=== PATIENT | female | born 1975 | race Caucasian/White ===

== ENCOUNTER → 2018-04-13 | Outpatient (CLI) | payer MEDICARE, OTHER ==
--- NOTE | 2018-04-14 05:17 | MR ---
EXAMINATION TYPE: MR pelvis wo/w con DATE OF EXAM: 04/13/2018 COMPARISON: HISTORY: Pelvic pain, abnormal CT/US CONTRAST: Standard multiplanar, multisequence MRI departmental protocol utilizing 5.5 mL intravenous Gadavist g adolinium contrast. FINDINGS: Uterus is anteverted. There is a large mass on the posterior uterine fundus that measures 7 x 5 cm. There is anterior displacement of the endometrium. There are a few cervical cysts that measu re up to 1 cm. Endometrium is not thickened. There is heterogeneous enhancement of the mass with cont rast. There is no free fluid in the pelvis. Bladder distends smoothly. There is 11 mm cyst on the right ova ry. There is 3.7 x 1.5 cm tubular shaped cystic fluid collection in the left adnexal region. This cou ld be ovarian cyst or hydrosalpinx. IMPRESSION: Large mass on the posterior uterine myometrium consistent with fibroid. Multiple small cervical cysts . No endometrial thickening. Right ovarian cyst. Left ovary cyst or hydrosalpinx.
== END | disposition home or self-care (01) ==
LOC: RADMRIMAIN 16:57
PROVIDERS: ATTEND Physician Assistant
DX: N88.8 Other specified noninflammatory disorders of cervix uteri (principal); N83.201 Unspecified ovarian cyst, right side
CPT/HCPCS: 72197; A9581

== ENCOUNTER → 2020-02-22 | Outpatient (CLI) | payer MEDICARE, OTHER ==
[2020-02-22 08:30] VITALS: BP 99/63; PULSE 99; RESP 14; TEMP 97.7
--- NOTE | 2020-02-22 09:14 | P.GSHP ---
History of Present Illness H&P Date: 02/22/20 Chief Complaint: Abnormal mammogram and ultrasound right breast Abida is a 44-year-old white female seen in consultation for Lian Balderas regarding mammographic and ultrasound abnormality of the right breast. The patient had a screening mammogram performed which revealed findings of concern leading to diagnostic mammograms of each breast and a focused ultrasound of the right breast. These were done on 02-13-20. She had additional views then performed to include diagnostic bilateral mammograms and ultrasound of the right breast. The right breast revealed calcifications localized to the anterior upper outer quadrant suspicious for malignancy. A 2.7 cm spiculated mass was noted at the 6:00 area of the right breast, also suspicious for malignancy. The possible mass in the central right breast seen in the initial mammogram was not seen. The left breast calcifications were scattered and considered non- suspicious. Targeted ultrasound was performed in the 6:00 region of the right breast and a 3.7 cm irregular hypoechoic shadowing mass was noted. This correlated with the palpable abnormality as well as the 2.7 cm spiculated mass noted on mammogram. Scanning the right axilla revealed a 1.1 cm fatty replaced lymph node and a 1.1 cm eccentric cortical thickening lymph node also suspicious for metastatic disease. The final impression after these studies was 1. 2.7 cm irregular hypoechoic shadowing solid mass in the 6:00 subareolar region of the right breast highly suggestive of malignancy/ultrasound core biopsy recommended 2. calcifications in the anterior upper outer quadrant of the right breast suspicious for malignancy 3. 1.1 cm axillary node with eccentric cortical thickening suspicious for metastatic disease 4. No mammographic evidence of malignancy in the left breast Abida states she noted a pulling in her right breast, and burning as well as deformity of the breast over the past several months. Sensation seems to be spreading in the inferior aspect of the right breast to under her right axilla. She did not pursue this secondary to the pandemic. She states no lumps in the left breast. She does not complain of any nipple discharge, trauma or infection in the breast. Family History: mother: of kidney and lung cancer; at 52 maternal grandmother: leukemia paternal grandmother: colon cancer maternal aunt: breast cancer Hormonal History: menarche: 16 , first born at 23, breast fed: yes periods: partial hysterectomy 2019 for a fibroid; did not take ovaries BCP: Depo shot used for 4 years and than a tubal hormones: none Social history: 1. Hysterectomy for fibroid tumors 2. gallbladder 3. two C-sections Medical History: 1. COPD/emphysema 2. Sleep apnea Social History: smoke: 6 cigarettes per day/ 25 years alcohol: none drugs: Marijuana for anxiety/twice a week - Constitutional Constitutional: Reports sweats - EENT Comment: glaucoma Eyes: denies blurred vision, denies pain Ears: deny: decreased hearing, tinnitus Ears, nose, mouth and throat: Reports headache - Breasts Breasts: bilateral: as per HPI - Cardiovascular Cardiovascular: Reports chest pain, Reports shortness of breath - Respiratory Comment: COPD/emphysema - Gastrointestinal Gastrointestinal: Denies abdominal pain, Denies diarrhea, Denies nausea, Denies vomiting - Genitourinary (Female) Genitourinary: Denies dysuria, Denies hematuria - Menstruation Menstruation: Reports post hysterectomy - Musculoskeletal Comment: legs ache - Integumentary Integumentary: Denies pruritus, Denies rash - Neurological Neurological: Denies numbness, Denies weakness - Psychiatric Psychiatric: Reports anxiety - Endocrine Endocrine: Reports weight change, Denies fatigue - Hematologic/Lymphatic Comment: none - Allergic/Immunologic Allergic/Immunologic: Reports as per HPI Past Medical History Past Psychological History: Anxiety Medications and Allergies Home Medications Medication Instructions Recorded Confirmed Type Albuterol Inhaler [Ventolin Hfa 2 puff INHALATION RT-QID 02/22/20 02/22/20 History Inhaler] Albuterol Sulfate [Albuterol 2 mg PO DAILY PRN 02/22/20 02/22/20 History Sulfate Oral Syrup] Budesonide/Formoterol Fumarate 2 puff INHALATION DAILY 02/22/20 02/22/20 History [Symbicort 160-4.5 Mcg Inhaler] Cetirizine HCl 10 mg PO DAILY 02/22/20 02/22/20 History Cyclobenzaprine [Flexeril] 5 mg PO HS 02/22/20 02/22/20 History Fluticasone Propionate [Flovent 50 mcg INHALATION DAILY PRN 02/22/20 02/22/20 History Diskus] Naproxen 500 mg PO BID 02/22/20 02/22/20 History clonazePAM [KlonoPIN] 1 mg PO DAILY PRN 02/22/20 02/22/20 History Allergies Allergy/AdvReac Type Severity Reaction Status Date / Time tree and shrub pollen Allergy Swelling Unverified 02/22/20 08:12 Surgical - Exam BMI 17.5 - General moderate distress, cachectic - Eyes normal ocular movement - ENT no hearing loss, no congestion - Neck trachea midline, no venous distension - Respiratory normal expansion, normal respiratory effort, clear to auscultation - Cardiovascular Rhythm: regular Heart Sounds: normal: S1, S2 - Abdomen Abdomen: soft, non tender, no guarding, no rigid, no rebound - Integumentary dimpling of the inferior aspect of the right breast - Neurologic no disoriented, no combative - Musculoskeletal normal gait, normal posture - Psychiatric oriented to time, oriented to person, oriented to place, speech is normal, memory intact Breast examination: Bra: 34A inspection: dimpling of the right breast at 6 O Clock, milky nipple discharge on the right, no nipple inversion bilaterl, ptosis grade 2 Palpation: Right breast: Multi-positional exam reveals a area of fullness/nodularity at the 6 o'clock position this is ? if it is fixed to the chest wall was approximately 3 x 4 cm in size the breast itself was very dense throughout Right axilla: Positive shotty adenopathy Left breast: Dense tissue in the discrete mass Left axilla: No adenopathy of concern Results Mammogram and ultrasound reviewed with Dr. Rodrigues Assessment and Plan Assessment: Impression: 1. Mass right breast 6 o'clock position 2. Shotty right axillary adenopathy 3. Radiographic abnormality right breast/microcalcifications upper outer quadrant as well as ultrasound mass at 6:00 4. Anxiety 5. COPD/emphysema Plan: 1. Radiographs have been reviewed with Dr. Rodrigues the area of concern in the right breast is BIRADS 5, the microcalcifications in the upper-outer quadrant are not well seen on the films we have 2. Axillary adenopathy of concern 3. We have discussed her biopsy of the palpable area in the breast to be followed by biopsy of the axillary node by radiology is possible the patient would like to have the biopsy of the breast lesion done today 4. The area of microcalcifications in the right breast are not well seen on the outside films, there is probably patient will be recommended neoadjuvant chemotherapy and had the image the breast after the chemotherapy and consider at that time biopsy of the microcalcifications, however on today's visit the patient states that she would most likely have the breast removed in which case biopsy may not be necessary The patient's breasts are very small the area of calcifications in the right breast are not well seen and it was not at all certain that these could be done via stereotactic approach CC: Sussy encounter 55 minutes; > 50% of time in planning and counselling
--- NOTE | 2020-02-22 09:47 | P.PCN ---
Date of Procedure: 02/22/20 Preoperative Diagnosis: Mass right breast 6 o'clock position Postoperative Diagnosis: Same Procedure(s) Performed: Core biopsy right breast 6 o'clock position Anesthesia: local Surgeon: Berta Frias Pathology: other (Tissue from right breast biopsy) Condition: stable Disposition: same day Operative Findings: Mass right breast, I have discussed the case with radiology/Dr. Rodrigues he concurs that if we can do a core biopsy today of the breast lesion that that would be a good choice otherwise it would be March 06 before she can get a biopsy of this lesion done, she'll have biopsy of the axillary node done in interventional radiology in the near future Description of Procedure: Risks and benefits of the procedure were discussed with the patient. Risks include but are not limited to bleeding, infection, reaction to the anesthetic. Additionally the possibility of a nondiagnostic sample was discussed which would necessitate an additional biopsy. The area of concern in the right breast was prepped using Betadine. 1% lidocaine was used to anesthetize the area of concern. An 18-gauge core biopsy needle spring Asst. was inserted into the area of concern. 3 samples were obtained. Specimen was prepped and sent to pathology. Patient tolerated the procedure in stable condition.
== END | disposition home or self-care (01) ==
LOC: WWCWWP 08:03
PROVIDERS: ATTEND Surgery
DX: N63.15 Unspecified lump in the right breast, overlapping quadrants (principal)
CPT/HCPCS: 88305; 88341; 88342

== ENCOUNTER 2020-02-28 08:50 | Day surgery (SDC) | payer MEDICARE, OTHER ==
[2020-02-28 09:43] VITALS: BP 96/55; PULSE 58; RESP 16; TEMP 98.3
--- NOTE | 2020-02-28 10:45 | US ---
ULTRASOUND GUIDED CORE BIOPSY RIGHT AXILLA LYMPH NODE: CLINICAL HISTORY: Right axilla lymph node FINDINGS: The procedure was explained to the patient. The risks, complications, benefits and alternatives were discussed and any questions were answered. Informed consent was obtained. Patient was placed supin e on the ultrasound table and prepped and draped in the usual sterile fashion. Utilizing a 25 gauge needle, five passes were made into the requested right axilla lymph node. Patient was stable throughout the procedure. Pathology is pending. All elements of maximal barrier technique were utilized. IMPRESSION: 1. Successful ultrasound guided core biopsy of the right axillary requested lymph node.
== END 2020-02-28 10:20 | disposition home or self-care (01) ==
LOC: RADPROMAIN 08:50
PROVIDERS: ATTEND Surgery
DX: C77.3 Secondary and unspecified malignant neoplasm of axilla and upper limb lymph nodes (principal); C50.911 Malignant neoplasm of unspecified site of right female breast
CPT/HCPCS: 38505; 76942; 88305

== ENCOUNTER → 2020-03-14 | Outpatient (CLI) | payer MEDICARE, OTHER ==
[2020-03-14 15:34] VITALS: BP 108/66; PULSE 81; RESP 14; TEMP 98.5
--- NOTE | 2020-03-14 15:51 | P.PN ---
Subjective Progress Note Date: 03/14/20 Principal diagnosis: Stage IIA right breast cancer Abida is a 44-year-old white female status post core biopsy of the lesion in the right breast as well as ultrasound core biopsy of right axillary lymph node. Both revealed invasive ductal carcinoma. It appears that she is a stage IIA. She tolerated the procedure well. I've had a discussion with Abida and her friend regarding treatment options. I would recommend she be seen by medical oncology and had genetic testing done. Additionally she will discuss neoadjuvant chemotherapy with medical oncology. Objective - Vital Signs Vital signs: Vital Signs Temp 98.5 F 03/14/20 15:30 Pulse 81 03/14/20 15:30 Resp 14 03/14/20 15:30 BP 108/66 03/14/20 15:30 Pulse Ox 95 03/14/20 15:30 Intake & Output 03/13/20 03/14/20 03/14/20 18:59 06:59 18:59 Weight 49.895 kg - Exam BMI 17.2 - Constitutional General appearance: Present: thin - EENT Eyes: Present: EOMI ENT: Present: hearing grossly normal - Neck Neck: Present: normal ROM - Respiratory Respiratory: bilateral: CTA - Cardiovascular Rhythm: regular Heart sounds: normal: S1, S2 - Integumentary Integumentary Comment(s): Biopsy sites right breast and axilla clean and dry no evidence of infection - Psychiatric Psychiatric: Present: A&O x's 3, appropriate affect, intact judgment & insight Assessment and Plan Assessment: Impression: 1. Right breast stage IIA cancer 2. anxiety 3. COPD/emphysema Plan: 1. appointment with medical oncology 2. present case at tumor board 3. genetic testing CC: Lian Nixon encounter 30 minutes, > 50% of time in planning and counselling
== END | disposition home or self-care (01) ==
LOC: WWCWWP 15:22
PROVIDERS: ATTEND Surgery
DX: Z53.9 Procedure and treatment not carried out, unspecified reason (principal)

== ENCOUNTER → 2020-03-18 | Outpatient (CLI) | payer MEDICARE, OTHER ==
[2020-03-18 08:39] LABS: African American GFR (CKD) >90 (>60 ml/min/1.73 sqM); Blood Urea Nitrogen 11 mg/dL (7-17); Non-African American GFR(CKD) >90 (>60 ml/min/1.73 sqM)
--- NOTE | 2020-03-18 13:32 | CT ---
EXAMINATION TYPE: CT ChestAbdPelvis w con DATE OF EXAM: 03/18/2020 COMPARISON: None. HISTORY: Breast cancer CT DLP: 460.3 mGycm Automated exposure control for dose reduction was used. CONTRAST: CT scan of the chest, abdomen and pelvis is performed with Oral Contrast and with IV Contrast, patien t injected with 100 mL of Isovue 300. FINDINGS: LUNGS: The lungs are grossly clear, there is no concerning parenchymal mass or nodule identified. T here is no pleural effusion or pneumothorax seen. The tracheobronchial tree is patent. MEDIASTINUM: There are no greater than 1 cm hilar or mediastinal lymph nodes. No pericardial effusi on is seen. No thoracic aortic aneurysm. OTHER: Multiple asymmetrically enlarged right axillary lymph nodes, largest measuring up to 1.3 x 0. 8 cm. There is asymmetric right breast soft tissue inferior to the right nipple. LIVER: Numerous hepatic cysts and too small to characterize hypodense lesions. BILIARY: No biliary ductal dilatation. Status post cholecystectomy. PANCREAS: Normal. SPLEEN: Normal. ADRENALS: Normal. KIDNEYS: 1.0 cm right renal lower pole cyst. No hydronephrosis bilaterally. BOWEL: No obstruction or thickening. Colonic diverticulosis. No acute diverticulitis. Left upper tyree drant small bowel intussusception (3:74) with no upstream dilatation most likely represents transient small bowel peristalsis. Normal appendix. PERITONEUM: No pneumoperitoneum or ascites. 1.9 cm peritoneal nodular thickening of the midline lower pelvis (3:119), most likely related to postsurgical scarring. PELVIS: Normal urinary bladder. Status post hysterectomy. LYMPH NODES: No abdominal pelvic lymph adenopathy. VASCULATURE: No abdominal aortic aneurysm. OSSEOUS STRUCTURES: No aggressive osseous destructive lesions. IMPRESSION: 1. Asymmetric right breast soft tissue and right axillary lymphadenopathy, consistent with patient's history of known breast cancer. 2. No evidence of intrathoracic or abdominopelvic metastatic disease. 3. Numerous hepatic cysts. Additional too small to characterize hypodense hepatic lesions likely als o represent cysts. Attention on follow-up imaging for stability.
== END ==
LOC: RADCTMAIN 07:13
PROVIDERS: ATTEND Internal Medicine Hematology & Oncology
DX: N64.89 Other specified disorders of breast (principal); K76.89 Other specified diseases of liver; C50.811 Malignant neoplasm of overlapping sites of right female breast; R59.0 Localized enlarged lymph nodes; Z85.3 Personal history of malignant neoplasm of breast
CPT/HCPCS: 82565; 84520; 71260; 74177; 36415; Q9967

== ENCOUNTER → 2020-03-19 | Outpatient (CLI) | payer MEDICARE, OTHER ==
--- NOTE | 2020-03-19 11:21 | ECHOF ---
Referral Reason:C50.811 Malignant neoplasm of overlapping sites of MEASUREMENTS -------- HEIGHT: 170.2 cm WEIGHT: 50.8 kg BP: 108/52 RVIDd: 2.5 cm (< 3.3) IVSd: 0.8 cm (0.6 - 1.1) LVIDd: 4.3 cm (3.9 - 5.3) LVPWd: 0.9 cm (0.6 - 1.1) IVSs: 1.2 cm LVIDs: 2.9 cm LVPWs: 1.4 cm LA Diam: 2.9 cm (2.7 - 3.8) LAESV Index (A-L): 23.00 ml/m Ao Diam: 2.9 cm (2.0 - 3.7) AV Cusp: 1.8 cm (1.5 - 2.6) MV EXCURSION: 28.482 mm (> 18.000) MV EF SLOPE: 159 mm/s (70 - 150) EPSS: 0.3 cm MV E Epi: 0.69 m/s MV DecT: 180 ms MV A Epi: 0.40 m/s MV E/A Ratio: 1.71 RAP: 5.00 mmHg RVSP: 23.13 mmHg FINDINGS -------- Sinus rhythm. This was a technically good study. LV size, wall thickness and systolic function are normal, with an EF greater than 55%. The left aidee tricular size is normal. The diastolic filling pattern is normal for the age of the patient 6.46. The right ventricle is normal in size. Normal LA size by volume 22+/-6 ml/m2. The right atrial size is normal. Interatrial and interventricular septum intact. The aortic valve is trileaflet, and appears structurally normal. No aortic stenosis or regurgitation. [id number] mitral regurgitation is present. Mild prolapse of the anterior mitral valve leafle t. Mild prolapse of the posterior mitral valve leaflet. The tricuspid valve appears structurally normal. Mild tricuspid regurgitation present. Right vent ricular systolic pressure is normal at < 35 mmHg. The pulmonic valve was not well visualized. There is no pulmonic regurgitation present. The aortic root size is normal. Normal inferior vena cava with normal inspiratory collapse consistent with estimated right atrial pre ssure of 5 mmHg. There is no pericardial effusion. CONCLUSIONS -------- 1. LV size, wall thickness and systolic function are normal, with an EF greater than 55%. 2. Normal LA size by volume 22+/-6 ml/m2. 3. The aortic valve is trileaflet, and appears structurally normal. No aortic stenosis or regurgitati on. 4. [id number] mitral regurgitation is present. 5. Mild prolapse of the anterior mitral valve leaflet. 6. Mild prolapse of the posterior mitral valve leaflet. 7. Mild tricuspid regurgitation present. 8. There is no pericardial effusion. NATURAL RESOURCE ECONOMIST: Renee Silva RDCS
--- NOTE | 2020-03-19 14:50 | NM ---
EXAMINATION TYPE: NM bone scan whole body DATE OF EXAM: 03/19/2020 COMPARISON: CT 03/18/2020 HISTORY: Malignant neoplasm of overlapping sites, breast cancer Delayed whole-body scanning was performed following the injection of 24.2 mCi Tc 99m MDP. Images acq uired 3 hours post injection. FINDINGS: Soft tissue uptake is normal. No abnormal increased or decreased radio pharmaceutical uptake to sugge st metastatic disease. IMPRESSION: Normal bone scan
== END | disposition home or self-care (01) ==
LOC: RADECHMAIN 08:09
PROVIDERS: ATTEND Internal Medicine Hematology & Oncology
DX: I08.1 Rheumatic disorders of both mitral and tricuspid valves (principal); C50.811 Malignant neoplasm of overlapping sites of right female breast; Z88.0 Allergy status to penicillin
CPT/HCPCS: 93306; 78306; A9503

== ENCOUNTER 2020-03-21 07:39 | Day surgery (SDC) | payer MEDICARE, OTHER ==
[2020-03-20 12:12] VITALS: BMI 17.5
[~2020-03-21 07:39] MED LIST: ACETAMINOPHEN TAB 500 MG TAB PO ONE; DEXAMETHASONE SOD PHOSPHATE 10 MG/ML 1 ML VIAL IV ONE; HEPARIN SODIUM,PORCINE 5,000 UNIT/ML 1 ML VIAL SQ ONE; HYDROmorphone 0.5 MG/0.5 ML SYRINGE IVP PRN; LACTATED RINGERS 1,000 ML IV SCH; LIDOCAINE 1% (10MG/ML) FOR IV START INTRADERMA PRN; METOCLOPRAMIDE 5 MG/ML 2 ML VIAL IVP PRN; ONDANSETRON 4 MG/2 ML VIAL IVP ONE; Pre Op ABX Message 1 EACH MISC MISCELLANE ONE
[2020-03-21 07:58] VITALS: RESP 16
[2020-03-21] MEDS ORDERED: METOCLOPRAMIDE 5 MG/ML 2 ML VIAL ONE (08:02)
[2020-03-21] MEDS ORDERED: ACETAMINOPHEN TAB 500 MG TAB ONE (08:02)
[2020-03-21] MEDS ORDERED: ONDANSETRON 4 MG/2 ML VIAL ONE (08:02)
[2020-03-21] MEDS ORDERED: HEPARIN SODIUM,PORCINE 5,000 UNIT/ML 1 ML VIAL ONE (08:02)
--- NOTE | 2020-03-21 08:52 | P.GSHP ---
History of Present Illness H&P Date: 03/21/20 Chief Complaint: Right breast cancer 44-year-old female recently diagnosed with right breast cancer. Patient to initiate neoadjuvant chemotherapy in the near future. Recent bone scan and CT chest abdomen and pelvis negative for distant metastasis. Possible axillary node metastasis on studies thus far. Here today for Port-A-Cath placement. Past Medical History Past Medical History: Asthma, Cancer, COPD, GERD/Reflux, Hypertension, Sleep Apnea/CPAP/BIPAP Additional Past Medical History / Comment(s): NOT USING C-PAP., DIVERTICULOSIS, OCCASIONAL GERD, BREAST CANCER ., MIGRAINES. History of Any Multi-Drug Resistant Organisms: None Reported Past Surgical History: Breast Surgery, Section, Cholecystectomy, Hysterectomy Additional Past Surgical History / Comment(s): section x2 2001 & 2002; partial hysterectomy -states she has her ovaries., 10/02/18; cholecystectomy 2012; breast bx, axillary lymph node bx. Past Anesthesia/Blood Transfusion Reactions: No Reported Reaction Past Psychological History: Anxiety, Depression, Panic Disorder Smoking Status: Current every day smoker Past Alcohol Use History: None Reported Additional Past Alcohol Use History / Comment(s): started smoking as teenager ., currently smoking approximately 6 cigarettes per day Past Drug Use History: Marijuana Additional Drug Use History / Comment(s): current marijuana use. - Past Family History Father Family Medical History: No Reported History Mother Family Medical History: Cancer Additional Family Medical History / Comment(s): kidney and lung cancer 2009. maternal grandmother leukemia Medications and Allergies Home Medications Medication Instructions Recorded Confirmed Type Albuterol Inhaler [Ventolin Hfa 2 puff INHALATION RT-QID 02/22/20 03/21/20 History Inhaler] Budesonide/Formoterol Fumarate 2 puff INHALATION DAILY 02/22/20 03/21/20 History [Symbicort 160-4.5 Mcg Inhaler] Cyclobenzaprine [Flexeril] 5 mg PO HS 02/22/20 03/21/20 History Fluticasone Propionate [Flovent 50 mcg INHALATION DAILY PRN 02/22/20 03/21/20 History Diskus] clonazePAM [KlonoPIN] 1 mg PO DAILY PRN 02/22/20 03/21/20 History Acetaminophen [Tylenol Extra 1,000 mg PO DIRECTED PRN 03/20/20 03/21/20 History Strength] Multivit with Calcium,Iron,Min 1 each PO DAILY 03/20/20 03/21/20 History [Women's Multivitamin] Otc Allergy Pill 1 tab PO DAILY PRN 03/20/20 03/21/20 History Allergies Allergy/AdvReac Type Severity Reaction Status Date / Time tree and shrub pollen Allergy STUFFY Verified 03/21/20 07:52 NOSE, ITCHY & PUFFY EYES. aspirin AdvReac Nausea & Verified 03/21/20 07:52 Vomiting Surgical - Exam Vital Signs Temp Pulse Resp BP Pulse Ox 98.3 F 79 16 106/51 99 03/21/20 07:56 03/21/20 07:56 03/21/20 07:56 03/21/20 07:56 03/21/20 07:56 Physical exam: General: Well-developed, well-nourished HEENT: Normocephalic, sclerae nonicteric Abdomen: Nontender, nondistended Extremities: No edema Neuro: Alert and oriented Assessment and Plan (1) Breast cancer, right breast Narrative/Plan: 44 old female here today for Port-A-Cath placement. R Risks of bleeding, infection, DVT, pneumothorax, catheter malfunction, anesthesia related complications were discussed. The patient understands and wishes to proceed. Current Visit: Yes Status: Acute Code(s): C50.911 - MALIGNANT NEOPLASM OF UNSP SITE OF RIGHT FEMALE BREAST SNOMED Code(s): 760606125
[2020-03-21] MEDS ORDERED: MIDAZOLAM 2 MG/2 ML VIAL ONE (09:13)
[2020-03-21] MEDS ORDERED: LIDOCAINE 1% INJ 10MG/ML (20 ML MDV) ONE (09:13)
[2020-03-21] MEDS ORDERED: fentaNYL (PF) 50 MCG/ML 2 ML AMP ONE (09:13)
[2020-03-21] MEDS ORDERED: ePHEDrine SULFATE/0.9% NACL/PF 50 MG/5 ML SYRINGE IV ONE (09:13)
[2020-03-21] MEDS ORDERED: PROPOFOL 10 MG/ML 20 ML VIAL IV ONE (09:13)
[2020-03-21] MEDS ORDERED: SODIUM CHLORIDE 0.9% 100 ML with CLINDAMYCIN 600 MG IV ONE ×2 (09:25)
[2020-03-21] MEDS ORDERED: HEPARIN SODIUM,PORCINE 100 UNIT/ML 5 ML VIAL IV ONE (09:30)
[2020-03-21] MEDS ORDERED: LIDOCAINE (PF) 10 MG/ML 2 ML VIAL SQ ONE ×2 (09:30)
[2020-03-21] MEDS ORDERED: NALOXONE 0.4 MG/ML 1 ML VIAL IV PRN ×2 (09:53→11:36)
[2020-03-21] MEDS ORDERED: HYDROcodone/APAP 5-325MG 1 EACH TAB PO PRN (09:53)
--- NOTE | 2020-03-21 09:54 | P.OP ---
Date of Procedure: 03/21/20 Procedure(s) Performed: PREOPERATIVE DIAGNOSIS: Breast cancer POSTOPERATIVE DIAGNOSIS: Same PROCEDURE: Port-A-Cath placement with fluoroscopic and ultrasound guidance SURGEON: Tamra EBL: Minimal ANESTHESIA: Sedation COMPLICATIONS: None OPERATIVE PROCEDURE: Patient was brought and placed on the operative table in the supine position. The patient was sedated per anesthesia that time. The chest and neck were prepped and draped in usual sterile fashion. The ultrasound probe was used to identify the location of the right internal jugular vein. The skin was localized with lidocaine. The Seldinger needle was advanced into the IJ under ultrasound guidance. The wire was advanced through the needle under fluoroscopic guidance into the superior vena cava. A port pocket was created in the right infraclavicular location. The catheter was tunneled from the wire entrance site to the port pocket. The port was then connected to the catheter. The dilator introducer was threaded over the guidewire. The guidewire and dilator were then removed. The catheter was advanced through the introducer and introducer was then removed. The tip was seen to be in the right atrial junction via fluoroscopy. A picture of the radiograph showing the tip at the radial digital junction was taken. Port was flushed with both saline and a Hep- Lock solution. There was good flow both in and out of the port. The port was sutured in underlying tissues using 3-0 silk sutures. The subcutaneous tissues were reapproximated using 3-0 Vicryl sutures and the skin at both locations using 4-0 Monocryl sutures. Skin glue and sterile dressings then applied. DISPOSITION: Stable to recovery room
--- NOTE | 2020-03-21 10:08 | FL ---
Fluoroscopy History: BREAST CA 5 SEC FLUORO, 1 IMAGE SCANNED INTO PACS
[2020-03-21 10:28] VITALS: TEMP 98
--- NOTE | 2020-03-21 10:30 | XR ---
EXAMINATION TYPE: XR chest 1V confirm line [facility] DATE OF EXAM: 03/21/2020 COMPARISON: 12/06/2011 INDICATION: Line placement TECHNIQUE: Single frontal view of the chest is obtained. FINDINGS: The heart size is normal. The pulmonary vasculature is normal. Mild right lower lobe infiltrate may be present. Port is present on the right with the tip in the superior vena cava right atrial junction. Very minim al right pneumothorax may be present. Monitoring is recommended. IMPRESSION: 1. Very minimal right upper outer apical pneumothorax may be present. Monitoring is recommended. 2. Catheter tip is in the superior vena cava right atrial junction region. A Red level critical message alert has been initiated for Ben Barobza MD via the [employer] Critical Results System on 03/21/2020 10:28 AM. This message alert has been sent to Ben Barboza MD via the preferences provided by the clinician for the receipt of Radiology Critical Findings. Messag e ID [id number].
[2020-03-21] MEDS ORDERED: LACTATED RINGERS 1,000 ML IV ONE ×2 (11:06)
--- NOTE | 2020-03-21 11:39 | P.PN ---
Progress Note - Text Progress Note Date: 03/21/20 Postoperative chest x-ray shows possible tiny apical pneumothorax. Highly unlikely given the superficial nature of the patient's jugular vein and our visualization by ultrasound showing the Seldinger needle into the vein immediately. Results reviewed with patient. Will require short-term follow-up chest x-ray. Patient asymptomatic. We'll repeat chest x-ray at 3 PM. If chest x-ray clear we'll discharge at that time. Patient's daughter was updated.
--- NOTE | 2020-03-21 15:14 | XR ---
EXAMINATION TYPE: XR chest 1V portable DATE OF EXAM: 03/21/2020 COMPARISON: Earlier in the day HISTORY: Follow-up Port-A-Cath TECHNIQUE: Single frontal view of the chest is obtained. FINDINGS: Tiny right apical pneumothorax is suggested unchanged from prior examination. The lungs are clear. No evidence for mediastinal shift. Right MediPort catheter is noted. IMPRESSION: 1. I cannot exclude a very tiny right apical pneumothorax. No interval progression identified.
[2020-03-21 16:10] VITALS: BP 110/74; PULSE 56
== END 2020-03-21 16:23 | disposition home or self-care (01) ==
LOC: OR 07:39
PROVIDERS: ATTEND Surgery
DX: C50.911 Malignant neoplasm of unspecified site of right female breast (principal); J44.9 Chronic obstructive pulmonary disease, unspecified; K21.9 Gastro-esophageal reflux disease without esophagitis; I10 Essential (primary) hypertension; G47.30 Sleep apnea, unspecified; Z99.89 Dependence on other enabling machines and devices; F41.0 Panic disorder [episodic paroxysmal anxiety]; F32.9 Major depressive disorder, single episode, unspecified; F17.210 Nicotine dependence, cigarettes, uncomplicated; G43.909 Migraine, unspecified, not intractable, without status migrainosus; Z87.19 Personal history of other diseases of the digestive system; Z98.891 History of uterine scar from previous surgery; Z98.890 Other specified postprocedural states; Z90.49 Acquired absence of other specified parts of digestive tract; Z90.711 Acquired absence of uterus with remaining cervical stump; Z88.6 Allergy status to analgesic agent; Z86.73 Personal history of transient ischemic attack (TIA), and cerebral infarction without residual deficits; Z79.51 Long term (current) use of inhaled steroids; Z79.899 Other long term (current) drug therapy; Z91.048 Other nonmedicinal substance allergy status
CPT/HCPCS: 77001; 71045; 36561; C1788; J2250; J2001 ×2; J1644; J1642; J1100; J2405; J3010; J2704

== ENCOUNTER → 2020-09-18 | Outpatient (CLI) | payer MEDICARE, OTHER ==
[2020-09-18 09:27] VITALS: BP 107/75; PULSE 81; RESP 16; TEMP 97.6
--- NOTE | 2020-09-18 09:43 | P.PN ---
Subjective Progress Note Date: 09/18/20 Principal diagnosis: stge IIA [id number]+DC+Her2-G2 Abida is a 44-year-old white female seen in consultation for Lian Balderas regarding mammographic and ultrasound abnormality of the right breast. The patient had a screening mammogram performed which revealed findings of concern leading to diagnostic mammograms of each breast and a focused ultrasound of the right breast. These were done on 02-13-20. She had additional views then performed to include diagnostic bilateral mammograms and ultrasound of the right breast. The right breast revealed calcifications localized to the anterior upper outer quadrant suspicious for malignancy. A 2.7 cm spiculated mass was noted at the 6:00 area of the right breast, also suspicious for malignancy. The possible mass in the central right breast seen in the initial mammogram was not seen. The left breast calcifications were scattered and considered non- suspicious. Targeted ultrasound was performed in the 6:00 region of the right breast and a 3.7 cm irregular hypoechoic shadowing mass was noted. This correlated with the palpable abnormality as well as the 2.7 cm spiculated mass noted on mammogram. Scanning the right axilla revealed a 1.1 cm fatty replaced lymph node and a 1.1 cm eccentric cortical thickening lymph node also suspicious for metastatic disease. The final impression after these studies was 1. 2.7 cm irregular hypoechoic shadowing solid mass in the 6:00 subareolar region of the right breast highly suggestive of malignancy/ultrasound core biopsy recommended 2. calcifications in the anterior upper outer quadrant of the right breast suspicious for malignancy 3. 1.1 cm axillary node with eccentric cortical thickening suspicious for metastatic disease 4. No mammographic evidence of malignancy in the left breast Abida states she noted a pulling in her right breast, and burning as well as deformity of the breast over the past several months. Sensation seems to be spreading in the inferior aspect of the right breast to under her right axilla. She did not pursue this secondary to the pandemic. She states no lumps in the left breast. The patient was seen by medical oncology and underwent neoadjuvant Adriamycin and Cytoxan starting on 8419 and completed 4 cycles in . 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 She has had an excellent response to her chemotherapy with no more nipple retraction on the right, and states that the node which was palpable prior in the right axilla is no longer palpable. She is feeling well at this time. Family History: mother: of kidney and lung cancer; at 52 maternal grandmother: leukemia paternal grandmother: colon cancer maternal aunt: breast cancer Hormonal History: menarche: 16 , first born at 23, breast fed: yes periods: partial hysterectomy 2019 for a fibroid; did not take ovaries BCP: Depo shot used for 4 years and than a tubal hormones: none Social history: 1. Hysterectomy for fibroid tumors 2. gallbladder 3. two C-sections Medical History: 1. COPD/emphysema 2. Sleep apnea Surgical History: 2 gallbladder port a cath placement Social History: smoke: 1/2 PPD for 25 years alcohol: none drugs: Marijuana for anxiety/twice a week - Constitutional Constitutional: Reports sweats - EENT Comment: glaucoma Eyes: denies blurred vision, denies pain, eyes fogged after chemotherapy Ears: deny: decreased hearing, tinnitus Ears, nose, mouth and throat: Reports headache - Breasts Breasts: bilateral: as per HPI - Cardiovascular Cardiovascular: Reports chest pain, Reports shortness of breath with anxiety - Respiratory Comment: COPD/emphysema - Gastrointestinal Gastrointestinal: Denies abdominal pain, Denies diarrhea, Denies nausea, Denies vomiting - Genitourinary (Female) Genitourinary: Denies dysuria, Denies hematuria - Menstruation Menstruation: Reports post hysterectomy - Musculoskeletal Comment: legs ache, bone and suscle pain at time of chemotherapy - Integumentary Integumentary: Denies pruritus, Denies rash - Neurological Neurological: Denies numbness, Denies weakness - Psychiatric Psychiatric: Reports anxiety - Endocrine Endocrine: Reports weight change, Denies fatigue - Hematologic/Lymphatic Comment: none - Allergic/Immunologic Allergic/Immunologic: Reports as per HPI Objective - Vital Signs Vital signs: Intake & Output 09/17/20 09/18/20 09/18/20 18:59 06:59 18:59 Weight 55.338 kg - Exam BMI 19.1 - Constitutional General appearance: Present: average body habitus - EENT Eyes: Present: EOMI ENT: Present: hearing grossly normal - Neck Neck: Present: normal ROM - Respiratory Respiratory: bilateral: CTA - Cardiovascular Rhythm: regular Heart sounds: normal: S1, S2 - Gastrointestinal General gastrointestinal: Present: normal bowel sounds, soft - Integumentary Integumentary: Present: normal turgor - Musculoskeletal Musculoskeletal: Present: gait normal - Psychiatric Psychiatric: Present: A&O x's 3, appropriate affect, intact judgment & insight - Additional findings Additional findings: breast exam: BRA: 34A inspection: Mild dimpling on the right breast inferior to the areolar, grade 2 ptosis left breast Palpation: Right breast: Multi-positional exam fullness directly behind the nipple areolar complex with some dimpling of the skin in the inferior aspect, no other dominant masses or nodules of concern Right axilla: No adenopathy of concern left breast: Multiple positional exam fibrocystic changes Left axilla: No adenopathy of concern Assessment and Plan Assessment: Impression: 1. 44-year-old white female status post neoadjuvant chemotherapy for stage II a right breast cancer/good clinical response 2. COPD nicotine dependence 3. Sleep apnea 4. 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 Right breast mastectomy with sentinel node injection and biopsy biopsy, needle localization of lymph node which was previously biopsied as well with resection of this lymph node which may or may not be the same as the sentinel node 2. Adequate clearance Risks and benefits of the procedure were discussed with the patient. The patient was given the option of seeing a plastic surgeon and has declined at this time. Risks include but are not limited to bleeding, infection, reaction to the anesthetic. Additionally if the sentinel and/or other nodes removed are positive it may necessitate further surgical resection. She understands and wishes to proceed. Axillary dissection could result in decreased sensation to the interim, possibility of injury to the thoracodorsal and long thoracic nerves which could cause some winging of the scapula. She understands again and wishes to proceed. If the radioactive substance localization of the sentinel node does not travel we may need to inject methylene blue for localization of the sentinel node. Cc: Lian Balderas encounter 30 minutes, > 50% of time in planning and counseling
== END | disposition home or self-care (01) ==
LOC: WWCWWP 09:08
PROVIDERS: ATTEND Surgery
DX: Z53.9 Procedure and treatment not carried out, unspecified reason (principal)

== ENCOUNTER → 2020-09-18 | Outpatient (CLI) | payer MEDICARE, OTHER ==
[2020-09-18 10:32] LABS: Basophils % (A) 1 %; Eosinophils # (A) 0.2 k/uL (0-0.7); Eosinophils % (A) 4 %; HCT 47.3 % (34.0-46.0); HGB 15.8 gm/dL (11.4-16.0); Lymphocytes # (A) 1.4 k/uL (1.0-4.8); Lymphocytes % (A) 23 %; MCH 32.4 pg (25.0-35.0); MCHC 33.3 g/dL (31.0-37.0); MCV 97.1 fL (80.0-100.0); Mean Platelet Volume 6.9; Monocytes # (A) 0.4 k/uL (0-1.0); Monocytes % (A) 7 %; Neutrophils # (A) 3.9 k/uL (1.3-7.7); Neutrophils % (A) 65 %; Platelet Count 206 k/uL (150-450); RBC 4.88 m/uL (3.80-5.40); RDW 12.4 % (11.5-15.5); WBC 6.1 k/uL (3.8-10.6)
[2020-09-18 10:42] LABS: ALT 18 U/L (4-34); AST 24 U/L (14-36); African American GFR (CKD) >90 (>60 ml/min/1.73 sqM); Albumin 3.8 g/dL (3.5-5.0); Alkaline Phosphatase 59 U/L (38-126); Anion Gap 5 mmol/L; Blood Urea Nitrogen 10 mg/dL (7-17); Calcium 9.3 mg/dL (8.4-10.2); Carbon Dioxide 26 mmol/L (22-30); Chloride 107 mmol/L (98-107); Glucose 86 mg/dL (74-99); Non-African American GFR(CKD) >90 (>60 ml/min/1.73 sqM); Potassium 4.6 mmol/L (3.5-5.1); Sodium 138 mmol/L (137-145); Total Bilirubin 0.5 mg/dL (0.2-1.3); Total Protein 6.7 g/dL (6.3-8.2)
== END | disposition home or self-care (01) ==
LOC: LABPAT 10:03
PROVIDERS: ATTEND Nurse Practitioner
DX: Z01.818 Encounter for other preprocedural examination (principal)
CPT/HCPCS: 80053; 85025

== ENCOUNTER 2020-10-21 09:23 | Day surgery (SDC) | payer MEDICARE, OTHER ==
[2020-10-20 12:10] VITALS: BMI 19.4
[~2020-10-21 09:23] MED LIST changes: -ACETAMINOPHEN TAB 500 MG TAB PO ONE; -DEXAMETHASONE SOD PHOSPHATE 10 MG/ML 1 ML VIAL IV ONE; +DEXAMETHASONE SOD PHOSPHATE 4 MG/ML 1 ML VIAL IV ONE; -HEPARIN SODIUM,PORCINE 5,000 UNIT/ML 1 ML VIAL SQ ONE; +HEPARIN SODIUM,PORCINE 5,000 UNIT/ML 1 ML VIAL SQ PRN; -HYDROmorphone 0.5 MG/0.5 ML SYRINGE IVP PRN; -LACTATED RINGERS 1,000 ML IV SCH; -METOCLOPRAMIDE 5 MG/ML 2 ML VIAL IVP PRN; +MIDAZOLAM 2 MG/2 ML VIAL IV PRN; +fentaNYL (PF) 50 MCG/ML 2 ML AMP IV PRN
[2020-10-21] MEDS ORDERED: LIDOCAINE 1% INJ 10MG/ML (20 ML MDV) ONE (10:09)
[2020-10-21] MEDS ORDERED: MIDAZOLAM 2 MG/2 ML VIAL ONE (10:09)
[2020-10-21] MEDS ORDERED: SUCCINYLCHOLINE CHLORIDE 100 MG/5 ML SYR IV ONE (10:09)
[2020-10-21] MEDS ORDERED: PROPOFOL 10 MG/ML 20 ML VIAL IV ONE (10:09)
[2020-10-21] MEDS ORDERED: HEPARIN SODIUM,PORCINE 5,000 UNIT/ML 1 ML VIAL ONE (10:09)
[2020-10-21] MEDS ORDERED: fentaNYL (PF) 50 MCG/ML 2 ML AMP ONE (10:09)
[2020-10-21] MEDS ORDERED: WATER FOR INJECTION, STERILE 10 ML VIAL IV ONE (10:09)
[2020-10-21] MEDS ORDERED: ePHEDrine SULFATE/0.9% NACL/PF 50 MG/5 ML SYRINGE IV ONE (10:09)
[2020-10-21] MEDS: LACTATED RINGERS 1,000 ML IV SCH ×2 (10:11→10:13)
--- NOTE | 2020-10-21 10:19 | NM ---
EXAMINATION TYPE: NM sentinel node injection DATE OF EXAM: 10/21/2020 COMPARISON: NONE INDICATION: Abnormal mammogram. Informed consent was obtained. A timeout was performed. The area around the right nipple was cleansed with alcohol. The skin was anesthetized with 1% Lidoca ine with sodium bicarbonate. In a single dose, a total of 469 millicuries Technetium 99m Tilmanocept was injected. The patient tolerated the procedure very well. IMPRESSIONS: 1.. Successful injection for sentinel node evaluation.
[2020-10-21] MEDS ORDERED: METHYLENE BLUE 50 MG/10 ML AMPUL INJ ONE (10:42)
[2020-10-21] MEDS ORDERED: LACTATED RINGERS 1,000 ML IV ONE (12:02)
[2020-10-21] MEDS ORDERED: ONDANSETRON 4 MG/2 ML VIAL IVP PRN (12:46)
[2020-10-21] MEDS ORDERED: NALOXONE 0.4 MG/ML 1 ML VIAL IV PRN (12:46)
[2020-10-21] MEDS ORDERED: HYDROcodone/APAP 5-325MG 1 EACH TAB PO PRN (12:46)
[2020-10-21] MEDS ORDERED: HYDROmorphone 1 MG/ML 1 ML SYRINGE IVP PRN (12:46)
--- NOTE | 2020-10-21 12:46 | P.OP ---
Date of Procedure: 10/21/20 Preoperative Diagnosis: Right breast invasive ductal carcinoma/status post neoadjuvant chemotherapy Postoperative Diagnosis: Same Procedure(s) Performed: Right mastectomy, methylene blue injection for sentinel node mapping, sentinel node biopsy, axillary dissection Anesthesia: JADE Surgeon: Berta Frias Estimated Blood Loss (ml): 30 IV fluids (ml): 1,150 Pathology: other (Right breast, axillary tissue) Condition: stable Disposition: floor Indications for Procedure: Right breast invasive ductal carcinoma Operative Findings: Very dense breast tissue Description of Procedure: Abida is a 44-year-old white female diagnosed with a right breast invasive ductal carcinoma. She opted for a right breast mastectomy sentinel node biopsy possible axillary node dissection. The patient preoperative had a right axillary node biopsy which was positive for malignancy. Preoperatively the patient underwent radioactive injection to evaluate the sentinel node. The patient was brought to the operative suite in the right axilla was interrogated using the neoprobe. There was a question as to whether the radioactive substance had traveled to the axilla and it was felt the methylene blue should be injected. 8 cc of half-strength methylene blue was injected into the periareolar area and the breast was massaged for approximately 5 minutes. The right breast and axilla were then prepped and draped in a sterile fashion. A marking pen was used to lupillo the incision for the mastectomy. The breast was small and the inferior incision had to be made quite low secondary to the location of the tumor, there was some concern there was skin involvement by the tumor. The superior flap was developed first. A skin incision was made and carried down into the tissue between the subcutaneous tissue and breast tissue. Superior flap was developed. Hemostasis was attained using the Harmonic scalpel and electrocautery device. This was carried to the chest wall. Following this the inferior flap was developed in a similar fashion. The breast was taken from medial to lateral off the chest wall using the Harmonic scalpel and electrocautery device. The wound was well irrigated. The breast was removed. There is marked with a short suture for superior and long suture for lateral. At the level of the axillary tail the wound was again interrogated. Using the neoprobe we did find 2 blue lymph nodes which were radioactive. These were obtained nodes and the first node had a 10 second count of 2946 and the second node had a 10 second count of 1852. The axillary tissues were very dense and additional axillary tissue which was radioactive was identified. The 10 second count and this tissue was approximately 800 with no discernible visible node. It was felt that these were changes related to the neoadjuvant chemotherapy. The tissues were dissected proximally to the level of the inferior axillary vessels and the tissues were swept inferior identifying the area of the tho racodorsal and long thoracic nerves. These tissues appeared to be fibrotic and suspicious believed related to the neoadjuvant chemotherapy. After we were assured that hemostasis was attained Surgicel in powder form was placed in both the axilla and under the skin flaps. CARIDAD drains were placed. The deep tissues were closed using 3-0 Vicryl suture. This was followed by a 4- 0 Monocryl. Surgical glue was applied. A sterile dressing was applied. The patient tolerated the procedure in stable condition. CARIDAD drains were noted to be holding suction with no difficulty at the end of the case. All instrument and sponge counts were correct at the end of the case.
[2020-10-21] MEDS: HYDROmorphone 0.5 MG/0.5 ML SYRINGE IVP PRN ×2 (12:55→13:08)
[2020-10-21] MEDS: DEXTROSE 5%-0.45% NACL 1,000 ML IV SCH (14:01)
[2020-10-21] MEDS ORDERED: LORazepam 0.5 MG TAB PO PRN (16:06)
--- NOTE | 2020-10-21 18:12 | CONS ---
CONSULTATION DATE OF SERVICE: 10/21/2020 REASON FOR CONSULTATION: Advice regarding asthma, COPD and multiple medical issues, requested by Dr. Rowe. HISTORY OF PRESENT ILLNESS: This 44-year-old woman with a past medical history of asthma, COPD, GERD, hypertension, being followed by Lian Balderas in the outpatient setting, underwent right mastectomy with methylene blue injection for sentinel node mapping, sentinel node biopsy and axillary dissection by Dr. Rowe. Patient tolerated the procedure well. There is no history of any fever, rigors or chills. No history of headache, loss of consciousness, seizures. The patient is taking bronchodilators at home. PAST MEDICAL HISTORY: History of intermittent asthma, COPD, GERD, hypertension, sleep apnea. MEDICATIONS: Medications prior to admission include multivitamins, Claritin, Ativan, Symbicort. Doses are reviewed. ALLERGIES: TREE POLLEN and ASPIRIN. FAMILY HISTORY: History of kidney and lung cancer, leukemia in maternal grandmother. SOCIAL HISTORY: Light tobacco smoking, THC. REVIEW OF SYSTEMS: ENT: No diminished hearing. No diminished vision. CARDIOVASCULAR SYSTEM: As mentioned earlier. RESPIRATORY SYSTEM: As mentioned earlier. GI: No nausea, vomiting. : No dysuria or retention. NERVOUS SYSTEM: No numbness, weakness. ALLERGY/IMMUNOLOGY: As mentioned earlier. HEMATOLOGY/ONCOLOGY: As mentioned earlier. ENDOCRINE: No history of diabetes, hypothyroidism. CONSTITUTIONAL: As mentioned earlier. DERMATOLOGY: Negative. RHEUMATOLOGY: Negative. PSYCHIATRY: As mentioned earlier. PHYSICAL EXAMINATION: Patient alert and oriented x3. Pulse 62, blood pressure 115/70, respiration 18, temperature 97.5, pulse ox 97% on room air. HEENT: Conjunctivae normal. Oral mucosa moist. NECK: No jugular venous distention. No carotid bruit. No lymph node enlargement. CARDIOVASCULAR SYSTEM: S1, S2 muffled. No S3. No S4. No rhonchi. No crackles. ABDOMEN: Soft, non-tender. No mass palpable. LEGS: No edema. No swelling. NERVOUS SYSTEM: Higher functions as mentioned earlier. Moves all 4 limbs. No focal motor or sensory deficit. LYMPHATICS: No lymph node palpable in neck, axillae or groin. SKIN: No ulcer, rash, bleeding. Status post right mastectomy. JOINTS: No active deforming arthropathy. LABS: The preoperative labs: Hematology was within normal limits and chemistry panel showed CO2 of 18; otherwise normal. ASSESSMENT: 1. Status post right mastectomy, sentinel node biopsy and axillary dissection for right breast invasive ductal carcinoma. 2. History of asthma. 3. History of chronic obstructive pulmonary disease. 4. History of gastroesophageal reflux disease. 5. Hypertension. 6. Sleep apnea. 7. History of breast surgery. 8. History of anxiety, depression, panic disorder. 9. History of nicotine dependence. 10.History of tetrahydrocannabinol. 11.FULL CODE. RECOMMENDATIONS AND DISCUSSION: In this 44-year-old woman who presented after surgery, at this time I recommend to continue current medications, continue symptomatic treatment. Otherwise, bronchodilators, DVT prophylaxis, incentive spirometry. Recommend close followup with the primary physician after discharge. Thank you, Dr. Rowe, for letting us participate in the care of this patient. MMFRENCHL / IJN: [id number] /
[2020-10-21] MEDS: SYMBICORT 160-4.5 MCG INHALER INHALATION SCH (19:25)
[2020-10-21] MEDS: HEPARIN SODIUM,PORCINE 5,000 UNIT/ML 1 ML VIAL SQ SCH (20:36)
[2020-10-22] MEDS: DEXTROSE 5%-0.45% NACL 1,000 ML IV SCH ×2 (02:09→11:00)
[2020-10-22 04:04] VITALS: RESP 16
[2020-10-22 05:50] LABS: Basophils % (A) 0 %; Eosinophils # (A) 0.2 k/uL (0-0.7); Eosinophils % (A) 3 %; HCT 41.5 % (34.0-46.0); HGB 13.5 gm/dL (11.4-16.0); Lymphocytes # (A) 1.4 k/uL (1.0-4.8); Lymphocytes % (A) 21 %; MCH 31.3 pg (25.0-35.0); MCHC 32.7 g/dL (31.0-37.0); MCV 95.8 fL (80.0-100.0); Mean Platelet Volume 7.1; Monocytes # (A) 0.5 k/uL (0-1.0); Monocytes % (A) 7 %; Neutrophils # (A) 4.4 k/uL (1.3-7.7); Neutrophils % (A) 67 %; Platelet Count 174 k/uL (150-450); RBC 4.33 m/uL (3.80-5.40); RDW 12.3 % (11.5-15.5); WBC 6.6 k/uL (3.8-10.6)
[2020-10-22] MEDS: NICOTINE 14MG/24HR PATCH TRANSDERM SCH ×2 (05:52→11:06)
[2020-10-22] MEDS: SYMBICORT 160-4.5 MCG INHALER INHALATION SCH (08:05)
[2020-10-22] MEDS: HEPARIN SODIUM,PORCINE 5,000 UNIT/ML 1 ML VIAL SQ SCH (08:50)
--- NOTE | 2020-10-22 10:48 | P.PN ---
Subjective Progress Note Date: 10/22/20 Principal diagnosis: Postop day #1 right mastectomy axillary node dissection This is a 44-year-old white female postop day #1 right mastectomy and axillary node dissection. Postoperatively she is doing well without complaints. Her CARIDAD output has been minimal and is serous in nature. She is tolerating diet without difficulty. She has minimal discomfort. Objective - Vital Signs Vital signs: Vital Signs Temp 97.9 F 10/22/20 04:03 Pulse 57 L 10/22/20 04:03 Resp 16 10/22/20 04:03 BP 92/51 10/22/20 04:03 Pulse Ox 97 10/22/20 04:03 Intake & Output 10/21/20 10/22/20 10/22/20 18:59 06:59 18:59 Intake Total 2000 Output Total 230 1355 Balance 1770 -1355 Weight 56.9 kg Intake: IV 1400 Oral 600 Output: Drainage 20 Drain 2 20 Urine 200 1335 Estimated Blood Loss 30 Other: Voiding Method Toilet # Emeses 1 - Constitutional General appearance: Present: average body habitus - EENT Eyes: Present: EOMI ENT: Present: hearing grossly normal - Neck Neck: Present: normal ROM - Respiratory Respiratory: bilateral: CTA - Cardiovascular Rhythm: regular Heart sounds: normal: S1, S2 - Integumentary Integumentary Comment(s): Incision clean and dry Small fluid collection under flaps Drain was stripped and 20 mL of serous fluid was obtained and the flap was adherent against the chest wall - Psychiatric Psychiatric: Present: A&O x's 3, appropriate affect - Labs CBC & Chem 7: 10/22/20 05:34 Assessment and Plan Assessment: Impression: 1. Patient postop day #1 right mastectomy and axillary node dissection Patient doing well at this time without complaints Plan: 1. Discharge home to be followed as an outpatient 2. Patient taught drain care 3. Patient to follow-up with Dr. Sanchez next week
--- NOTE | 2020-10-22 10:52 | P.DS ---
Providers Date of admission: 10-21-20 Expected date of discharge: 10/22/20 Attending physician: Berta Frias Consults: 10/21/20 12:49 Consult Physician Routine Consulting Provider: Andrew Baez Consult Reason/Comments: medical managment Do you want consulting provider notified?: Yes Primary care physician: Demetrio Larry [facility] Course: This is a 44-year-old white female status post right mastectomy and axillary node dissection on . Postoperatively she is done well and is ready for discharge. The patient will follow with Dr. Sanchez. She did receive neoadjuvant chemotherapy. Procedures: Right mastectomy and axillary node dissection on Plan - Discharge Summary Discharge Rx Participant: No New Discharge Prescriptions: No Action Multivit with Calcium,Iron,Min [Women's Multivitamin] 1 each PO DAILY Loratadine [Claritin] 10 mg PO DAILY Budesonide-Formot 160-4.5 Mcg [Symbicort 160-4.5 Mcg Inhaler] 2 puff INHALATION BID PRN PRN Reason: Shortness Of Breath LORazepam [Ativan] 0.5 mg PO BID PRN PRN Reason: Shortness Of Breath Discharge Medication List Multivit with Calcium,Iron,Min [Women's Multivitamin] 1 each PO DAILY 03/20/20 [History] Loratadine [Claritin] 10 mg PO DAILY 09/18/20 [History] Budesonide-Formot 160-4.5 Mcg [Symbicort 160-4.5 Mcg Inhaler] 2 puff INHALATION BID PRN 09/25/20 [History] LORazepam [Ativan] 0.5 mg PO BID PRN 09/25/20 [History] Follow up Appointment(s)/Referral(s): Berta Frias MD [STAFF PHYSICIAN] - 1 Week Activity/Diet/Wound Care/Special Instructions: May shower after 48 hours Teach patient drain care, drain and record output twice a day and as needed Do not drive until seen by Dr. Sanchez Change Abilio wrap daily, keep pressure dressing on at all times Discharge Disposition: HOME SELF-CARE
[2020-10-22 11:27] VITALS: BP 110/61; PULSE 63; TEMP 98
--- NOTE | 2020-10-22 17:12 | PN ---
PROGRESS NOTE DATE OF SERVICE: 10/22/2020 This 44-year-old woman who was admitted after breast surgery has a history of asthma, COPD. No chest pain. No palpitations. No fever. PHYSICAL EXAMINATION: Alert and oriented x3. Pulse is 63, blood pressure 110/61, respirations 16, temperature 98 degrees, pulse ox 97% on room air. HEENT: Conjunctivae normal. NECK: No jugular venous distention. CARDIOVASCULAR SYSTEM: S1, S2 muffled. RESPIRATORY SYSTEM: Breath sounds diminished at the bases. No rhonchi. No crackles. ABDOMEN: Soft, non-tender. LEGS: No edema. No swelling. NERVOUS SYSTEM: No focal deficit. LABS: CBC within normal limits. ASSESSMENT: 1. Status post right mastectomy, sentinel node biopsy as well as axillary dissection for right breast invasive ductal carcinoma. 2. History of asthma. 3. History of chronic obstructive pulmonary disease. 4. History of gastroesophageal reflux disease. 5. Hypertension. 6. Sleep apnea. 7. History of breast surgery. 8. History of anxiety, depression, panic disorder. 9. History of nicotine dependence. 10.History of tetrahydrocannabinol. 11.FULL CODE. RECOMMENDATIONS AND DISCUSSION: I recommend to continue current medications, continue with the monitoring, symptomatic treatment. Resume the home medications. Incentive spirometry. The rest of the recommendations per Surgery. Further recommendations to follow. MMODL / IJN: [id number] /
== END 2020-10-22 12:49 | disposition home or self-care (01) ==
LOC: OR 09:23 → 6PED 12:45 → 5NMEDONC 10-22 08:39 → OR 10-22 12:49
PROVIDERS: ATTEND Surgery
DX: C50.111 Malignant neoplasm of central portion of right female breast (principal); C77.3 Secondary and unspecified malignant neoplasm of axilla and upper limb lymph nodes; J45.20 Mild intermittent asthma, uncomplicated; J44.9 Chronic obstructive pulmonary disease, unspecified; I10 Essential (primary) hypertension; K21.9 Gastro-esophageal reflux disease without esophagitis; Z79.51 Long term (current) use of inhaled steroids; Z79.899 Other long term (current) drug therapy; Z88.6 Allergy status to analgesic agent; Z91.09 Other allergy status, other than to drugs and biological substances; Z80.1 Family history of malignant neoplasm of trachea, bronchus and lung; Z80.51 Family history of malignant neoplasm of kidney; Z80.6 Family history of leukemia; F41.9 Anxiety disorder, unspecified; G47.30 Sleep apnea, unspecified; Z87.891 Personal history of nicotine dependence; F32.9 Major depressive disorder, single episode, unspecified; F41.0 Panic disorder [episodic paroxysmal anxiety]; Z92.21 Personal history of antineoplastic chemotherapy; Z90.710 Acquired absence of both cervix and uterus; Z90.49 Acquired absence of other specified parts of digestive tract; Z98.891 History of uterine scar from previous surgery
CPT/HCPCS: 94640 ×2; 85025; 88342; 88307; 88309; 88341; 38792; 38525; 19303; A9520; S4990; J2250; J1644; J2405; J2001; J3010; J1170 ×2; J0330; J2704; Q9968

== ENCOUNTER → 2020-10-30 | Outpatient (CLI) | payer MEDICARE, OTHER ==
[2020-10-30 16:06] VITALS: BP 107/62; PULSE 91; RESP 18; TEMP 97.5
--- NOTE | 2020-10-30 16:48 | P.PN ---
Progress Note - Text Progress Note Date: 10/30/20 Jake is a 44-year-old white female status post right breast mastectomy and removal of 7 axillary nodes. One of the axillary nodes had micrometastatic disease with extranodal extension. The remainder of the nodes were negative for tumor the breast lesion was 16 mm and margins are negative patient is doing very well without problems each CARIDAD drain is putting out approximately 10 mL per day for the last 4 days Physical examination: Lungs: Clear Heart: Regular rate and rhythm Incision: Clean and dry CARIDAD drain sites clean and dry Plan: 1. Remove CARIDAD drains 2. Follow-up radiation oncology and medical oncology 3. Follow-up here in 3 months time If radiation oncology would want us to remove more axillary lymph nodes were considered but at this time I suspected 7 nodes being removed is reflective and not necessary. CC: Dr. Larry Burgess
== END | disposition home or self-care (01) ==
LOC: WWCWWP 15:55
PROVIDERS: ATTEND Surgery
DX: Z90.11 Acquired absence of right breast and nipple (principal)

== ENCOUNTER → 2020-11-25 | Outpatient (CLI) | payer MEDICARE, OTHER ==
--- NOTE | 2020-11-26 14:56 | BD ---
EXAMINATION TYPE: Axial Bone Density DATE OF EXAM: 11/25/2020 COMPARISON: NONE CLINICAL HISTORY: Height: 5 FT 7 IN Weight: 118 FRAX RISK QUESTIONS: Alcohol (3 or more units per day): NO Family History (Parent hip fracture): NO Glucocorticoids (More than 3mos): NO (Ex: prednisone, prednisolone, methylprednisolone, dexamethasone, and hydrocortisone). History of Fracture in Adulthood: NO Secondary Osteoporosis: 1. Type 1 Diabetes: NO 2. Hyperthyroidism: NO 3. Menopause before 45: NA 4. Malnutrition: NO 5. Chronic liver disease: NO Rheumatoid Arthritis: NO Current Tobacco Use: YES RISK FACTORS HISTORY OF: Surgery to Spine/Hip(right/left)/Wrist (right/left): NO Family History of Osteoporosis: NO Active: NO Diet low in dairy products/other sources of calcium: NO Postmenopausal woman: PART HY 2019 Take estrogen and/or progesterone medications: NO Lost more than 2 inches in height since high school: NO MEDICATIONS: Additional Medications: INHALER NEEDED, ADIVAN NEEDED Additional History: RT MASTECTOMY 2019 CHEMO GETTING READY TO START RADIATION EXAM MEASUREMENTS: Bone mineral densitometry was performed using the [employer] System. Bone mineral density as measured about the Lumbar spine is: ----- L1-L4(G/cm2): 1.173 T Score Values are as follows: ----- L2-: -0.6 ----- L3: 0.7 ----- L4: 0.0 ----- L1-L4: -0.1 BASELINE Bone mineral density about the R hip (g/cm2): 0.887 Bone mineral density about the L hip (g/cm2): 0.895 T Score values are as follows: -----R Neck: -1.1 -----L Neck: -1.0 -----R Total: -1.0 -----L Total: -1.2 BASELINE IMPRESSION: Osteopenia (T Score between -2.5 and -1). There is slightly increased risk of fracture and the patient may be considered for treatment. Re-Screen 2-5 years. NOTE: T-SCORE=SD OF THE YOUNG ADULT MEAN.
== END ==
LOC: RADBDWWP 15:43
PROVIDERS: ATTEND Internal Medicine Hematology & Oncology
DX: M85.89 Other specified disorders of bone density and structure, multiple sites (principal); Z78.0 Asymptomatic menopausal state
CPT/HCPCS: 77080

== ENCOUNTER → 2020-12-16 | Outpatient (CLI) | payer MEDICARE, OTHER ==
[~2020-12-16] MED LIST changes: -DEXAMETHASONE SOD PHOSPHATE 4 MG/ML 1 ML VIAL IV ONE; -HEPARIN SODIUM,PORCINE 5,000 UNIT/ML 1 ML VIAL SQ PRN; +LEUPROLIDE ACET 11.25MG SYRGKIT IM NR; -LIDOCAINE 1% (10MG/ML) FOR IV START INTRADERMA PRN; -MIDAZOLAM 2 MG/2 ML VIAL IV PRN; -ONDANSETRON 4 MG/2 ML VIAL IVP ONE; -Pre Op ABX Message 1 EACH MISC MISCELLANE ONE; -fentaNYL (PF) 50 MCG/ML 2 ML AMP IV PRN
[2020-12-16 13:28] VITALS: BP 94/61; PULSE 95; RESP 16; TEMP 97.5
== END ==
LOC: PROCWHC3 12:33
PROVIDERS: ATTEND Internal Medicine Hematology & Oncology
DX: C50.111 Malignant neoplasm of central portion of right female breast (principal)
CPT/HCPCS: 96402; J1950

== ENCOUNTER 2021-01-26 06:40 | Day surgery (SDC) | payer MEDICARE, OTHER ==
[2021-01-22 09:18] VITALS: BMI 19.4
[~2021-01-26 06:40] MED LIST changes: +ACETAMINOPHEN TAB 500 MG TAB PO PRN; +HEPARIN SODIUM,PORCINE/PF 5,000 UNIT/0.5 ML SYRINGE SQ PRN; -LEUPROLIDE ACET 11.25MG SYRGKIT IM NR
[2021-01-26 07:08] VITALS: RESP 16; TEMP 97.1
[2021-01-26] MEDS ORDERED: LACTATED RINGERS 1,000 ML IV ONE (07:10)
[2021-01-26] MEDS ORDERED: LIDOCAINE 1% (10MG/ML) FOR IV START INTRADERMA ONE (07:10)
[2021-01-26] MEDS ORDERED: ONDANSETRON 4 MG/2 ML VIAL IVP ONE (07:30)
[2021-01-26] MEDS ORDERED: DEXAMETHASONE SOD PHOSPHATE 4 MG/ML 1 ML VIAL IVP ONE (07:30)
[2021-01-26] MEDS ORDERED: ONDANSETRON 4 MG/2 ML VIAL ONE (07:30)
[2021-01-26] MEDS ORDERED: MIDAZOLAM 2 MG/2 ML VIAL ONE (07:43)
[2021-01-26] MEDS ORDERED: LIDOCAINE 1% INJ 10MG/ML (20 ML MDV) ONE (07:43)
[2021-01-26] MEDS ORDERED: fentaNYL (PF) 50 MCG/ML 2 ML AMP ONE (07:43)
[2021-01-26] MEDS ORDERED: PROPOFOL 10 MG/ML 20 ML VIAL IV ONE (07:43)
--- NOTE | 2021-01-26 07:47 | P.GSHP ---
History of Present Illness H&P Date: 01/26/21 Chief Complaint: Right breast cancer 45-year-old female diagnosed with right-sided breast cancer last year. Patient underwent right mastectomy and did have adjuvant radiation therapy. Doing well at this time. Here for Port-A-Cath removal. Past Medical History Past Medical History: Asthma, Cancer, COPD, CVA/TIA, Eye Disorder, GERD/Reflux, Hypertension, Skin Disorder, Sleep Apnea/CPAP/BIPAP Additional Past Medical History / Comment(s): stroke 20 yrs. ago that affected right side & speech-no residual effects now, NOT USING C-PAP, HX DIVERTICULOSIS, OCCASIONAL GERD, RIGHT BREAST CANCER, MIGRAINES, BILATERAL GLAUCOMA -" DR WATCHING IT.", finished chemo in , radiation completed 12-31-20-has rash right side of chest & right armpit-resolving History of Any Multi-Drug Resistant Organisms: None Reported Past Surgical History: Breast Surgery, Section, Cholecystectomy, Hysterectomy Additional Past Surgical History / Comment(s): Section X2, partial hysterectomy -states she has her ovaries, breast biopsy, axillary lymph node biopsy. 10/21/2020 right mastectomy, port a cath February 2020 Past Anesthesia/Blood Transfusion Reactions: No Reported Reaction Smoking Status: Current some day smoker, Former smoker - Past Family History Father Family Medical History: No Reported History Mother Family Medical History: Cancer Additional Family Medical History / Comment(s): Kidney and lung cancer 2009. Maternal Grandmother - Leukemia Medications and Allergies Home Medications Medication Instructions Recorded Confirmed Type Multivit with Calcium,Iron,Min 1 each PO DAILY 03/20/20 01/26/21 History [Women's Multivitamin] Loratadine [Claritin] 10 mg PO DAILY 09/18/20 01/26/21 History Budesonide-Formot 160-4.5 Mcg 2 puff INHALATION BID PRN 09/25/20 01/26/21 History [Symbicort 160-4.5 Mcg Inhaler] LORazepam [Ativan] 0.5 mg PO BID PRN 09/25/20 01/26/21 History Acetaminophen [Tylenol Extra 500 mg PO DAILY PRN 10/30/20 01/26/21 History Strength] Anastrozole [Arimidex] 1 mg PO DAILY 01/22/21 01/26/21 History Ascorbic Acid [Vitamin C] 1,000 mg PO DAILY 01/22/21 01/26/21 History Cholecalciferol [Vitamin D3 (25 25 mcg PO DAILY 01/22/21 01/26/21 History Mcg = 1000 Iu)] Triamcinolone 0.1% Cream [Kenalog 1 applicatio TOPICAL BID PRN 01/22/21 01/26/21 History 0.1% Cream] Allergies Allergy/AdvReac Type Severity Reaction Status Date / Time tree and shrub pollen Allergy STUFFY Verified 01/26/21 06:57 NOSE, ITCHY & PUFFY EYES. aspirin AdvReac Nausea & Verified 01/26/21 06:57 Vomiting Surgical - Exam Vital Signs Temp Pulse Resp BP Pulse Ox 97.1 F L 68 16 89/50 98 01/26/21 06:55 01/26/21 06:55 01/26/21 06:55 01/26/21 06:55 01/26/21 06:55 Physical exam: General: Well-developed, well-nourished HEENT: Normocephalic, sclerae nonicteric Abdomen: Nontender, nondistended Extremities: No edema Neuro: Alert and oriented Chest: Right mastectomy, right-sided Port-A-Cath. Assessment and Plan (1) Breast cancer, right breast Narrative/Plan: Will proceed with Port-A-Cath removal at this time. Current Visit: No Status: Acute Code(s): C50.911 - MALIGNANT NEOPLASM OF UNSP SITE OF RIGHT FEMALE BREAST SNOMED Code(s): 177508116
[2021-01-26] MEDS ORDERED: BUPIVACAIN-EPI 0.5%-1:200,000 30 ML VIAL SQ ONE ×2 (08:04)
[2021-01-26] MEDS ORDERED: NALOXONE 0.4 MG/ML 1 ML VIAL IV PRN (08:22)
--- NOTE | 2021-01-26 08:24 | P.OP ---
Date of Procedure: 01/26/21 Procedure(s) Performed: PREOPERATIVE DIAGNOSIS: Breast cancer POSTOPERATIVE DIAGNOSIS: Same PROCEDURE: Port-A-Cath removal SURGEON: Tamra EBL: Minimal ANESTHESIA: Sedation COMPLICATIONS: None OPERATIVE PROCEDURE: Patient was placed in the supine position. The patient was sedated per anesthesia that time. The chest was prepped and draped in the usual sterile fashion. The skin was localized with Marcaine solution. The previous incision was re-incised using a scalpel. The port was easily excised using accommodation of blunt dissection sharp dissection and electrocautery. The subcutaneous tissues were reapproximated using 3-0 Vicryl sutures. The skin was reapproximated using 4-0 Monocryl sutures. Skin glue was then applied. DISPOSITION: Stable to recovery room
[2021-01-26 10:03] VITALS: BP 91/53; PULSE 55
== END 2021-01-26 10:04 | disposition home or self-care (01) ==
LOC: OR 06:40
PROVIDERS: ATTEND Surgery
DX: Z45.2 Encounter for adjustment and management of vascular access device (principal); C50.911 Malignant neoplasm of unspecified site of right female breast; Z90.11 Acquired absence of right breast and nipple; J44.9 Chronic obstructive pulmonary disease, unspecified; Z86.73 Personal history of transient ischemic attack (TIA), and cerebral infarction without residual deficits; K21.9 Gastro-esophageal reflux disease without esophagitis; G47.30 Sleep apnea, unspecified; H40.9 Unspecified glaucoma; Z87.19 Personal history of other diseases of the digestive system; G43.909 Migraine, unspecified, not intractable, without status migrainosus; F17.210 Nicotine dependence, cigarettes, uncomplicated; F32.9 Major depressive disorder, single episode, unspecified; F41.9 Anxiety disorder, unspecified; Z92.21 Personal history of antineoplastic chemotherapy; Z92.3 Personal history of irradiation; Z98.891 History of uterine scar from previous surgery; Z90.49 Acquired absence of other specified parts of digestive tract; Z90.710 Acquired absence of both cervix and uterus; Z98.890 Other specified postprocedural states; Z80.51 Family history of malignant neoplasm of kidney; Z80.1 Family history of malignant neoplasm of trachea, bronchus and lung; Z80.6 Family history of leukemia; Z79.811 Long term (current) use of aromatase inhibitors; Z79.51 Long term (current) use of inhaled steroids; Z79.899 Other long term (current) drug therapy; Z88.6 Allergy status to analgesic agent; Z91.048 Other nonmedicinal substance allergy status
CPT/HCPCS: 36590; J2250; J1100; J0690; J2405; J2001; J3010; J2704; J1644

== ENCOUNTER → 2021-03-17 | Outpatient (CLI) | payer MEDICARE, OTHER ==
[~2021-03-17] MED LIST changes: -ACETAMINOPHEN TAB 500 MG TAB PO PRN; -HEPARIN SODIUM,PORCINE/PF 5,000 UNIT/0.5 ML SYRINGE SQ PRN; +LEUPROLIDE ACET 11.25MG SYRGKIT IM NR
[2021-03-17 13:05] VITALS: RESP 16
[2021-03-17 13:08] VITALS: BP 106/66; PULSE 94; TEMP 97.4
== END ==
LOC: PROCWHC3 12:57
PROVIDERS: ATTEND Internal Medicine Hematology & Oncology
DX: C50.111 Malignant neoplasm of central portion of right female breast (principal); F17.200 Nicotine dependence, unspecified, uncomplicated; Z91.048 Other nonmedicinal substance allergy status; Z88.6 Allergy status to analgesic agent
CPT/HCPCS: 96402; J1950

== ENCOUNTER → 2021-06-29 | Outpatient (CLI) | payer MEDICARE, OTHER ==
[~2021-06-29] MED LIST changes: -LEUPROLIDE ACET 11.25MG SYRGKIT IM NR; +LEUPROLIDE ACET 11.25MG SYRGKIT IM ONE
[2021-06-29 14:03] VITALS: BP 114/70; PULSE 80; RESP 18; TEMP 97.6
== END ==
LOC: PROCWHC3 13:50
PROVIDERS: ATTEND Internal Medicine Hematology & Oncology
DX: C50.111 Malignant neoplasm of central portion of right female breast (principal); F17.200 Nicotine dependence, unspecified, uncomplicated; Z88.6 Allergy status to analgesic agent; Z91.09 Other allergy status, other than to drugs and biological substances
CPT/HCPCS: 96402; J1950

== ENCOUNTER → 2021-08-13 | Day surgery (SDC) | payer MEDICARE, OTHER ==
[2021-08-13 07:17] VITALS: BP 98/67; PULSE 77; RESP 16; TEMP 97.8
--- NOTE | 2021-08-13 08:19 | P.PN ---
Subjective Progress Note Date: 08/13/21 Principal diagnosis: Microcalcifications of concern in the left breast stage IIA [id number]+MS+Her2-G2 Abida is a 45-year-old white female seen initially in consultation for Lian Balderas regarding mammographic and ultrasound abnormality of the right breast. The patient had a screening mammogram performed which revealed findings of concern leading to diagnostic mammograms of each breast and a focused ultrasound of the right breast. These were done on 02-13-20. She had additional views then performed to include diagnostic bilateral mammograms and ultrasound of the right breast. The right breast revealed calcifications localized to the anterior upper outer quadrant suspicious for malignancy. A 2.7 cm spiculated mass was noted at the 6:00 area of the right breast, also suspicious for malignancy. The possible mass in the central right breast seen in the initial mammogram was not seen. The left breast calcifications were scattered and considered non- suspicious. Targeted ultrasound was performed in the 6:00 region of the right breast and a 3.7 cm irregular hypoechoic shadowing mass was noted. This correlated with the palpable abnormality as well as the 2.7 cm spiculated mass noted on mammogram. Scanning the right axilla revealed a 1.1 cm fatty replaced lymph node and a 1.1 cm eccentric cortical thickening lymph node also suspicious for metastatic disease. The final impression after these studies was 1. 2.7 cm irregular hypoechoic shadowing solid mass in the 6:00 subareolar region of the right breast highly suggestive of malignancy/ultrasound core biopsy recommended 2. calcifications in the anterior upper outer quadrant of the right breast suspicious for malignancy 3. 1.1 cm axillary node with eccentric cortical thickening suspicious for metastatic disease 4. No mammographic evidence of malignancy in the left breast Abida states she noted a pulling in her right breast, and burning as well as deformity of the breast over the past several months. Sensation seems to be spreading in the inferior aspect of the right breast to under her right axilla. She did not pursue this secondary to the pandemic. She states no lumps in the left breast. 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 The patient was seen by medical oncology and underwent neoadjuvant Adriamycin and Cytoxan starting on 8419 and completed 4 cycles in . 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 She has had an excellent response to her chemotherapy with no more nipple retraction on the right, and states that the node which was palpable prior in the right axilla is no longer palpable. She underwent a mastectomy and removal of axillary lymph nodes. Mastectomy revealed invasive ductal carcinoma with small residual focus in 1 of 6 lymph nodes. She then completed a course of adjuvant radiation therapy to the chest wall and regional lymphatics. She finished the radiation on 4721. She is presently taking arimidex, she is taking a lupren shot every 4 months. She underwent a mammogram of the left breast at [facility] on [phone]. This revealed suspicious calcifications in the upper quadrant of the left breast stereotactic core biopsy was recommended. Family History: mother: of kidney and lung cancer; at 52 maternal grandmother: leukemia paternal grandmother: colon cancer maternal aunt: breast cancer Hormonal History: menarche: 16 , first born at 23, breast fed: yes periods: partial hysterectomy 2019 for a fibroid; did not take ovaries BCP: Depo shot used for 4 years and than a tubal hormones: none Social history: 1. Hysterectomy for fibroid tumors 2. gallbladder 3. two C-sections Medical History: 1. COPD/emphysema 2. Sleep apnea Surgical History: 2 gallbladder port a cath placement right mastectomy/axillary node resection Social History: smoke: 1/2 PPD for 25 years alcohol: none drugs: Marijuana for anxiety/twice a week - Constitutional Constitutional: Reports sweats - EENT Comment: glaucoma Eyes: denies blurred vision, denies pain, eyes fogged after chemotherapy Ears: deny: decreased hearing, tinnitus Ears, nose, mouth and throat: Reports headache - Breasts Breasts: bilateral: as per HPI - Cardiovascular Cardiovascular: Reports chest pain, Reports shortness of breath with anxiety - Respiratory Comment: COPD/emphysema - Gastrointestinal Gastrointestinal: Denies abdominal pain, Denies diarrhea, Denies nausea, Denies vomiting - Genitourinary (Female) Genitourinary: Denies dysuria, Denies hematuria - Menstruation Menstruation: Reports post hysterectomy - Musculoskeletal Comment: legs ache, bone and suscle pain at time of chemotherapy - Integumentary Integumentary: Denies pruritus, Denies rash - Neurological Neurological: Denies numbness, Denies weakness - Psychiatric Psychiatric: Reports anxiety - Endocrine Endocrine: Reports weight change, Denies fatigue - Hematologic/Lymphatic Comment: none - Allergic/Immunologic Allergic/Immunologic: Reports as per HPI Objective - Vital Signs Vital signs: Vital Signs Temp 97.8 F 08/13/21 07:10 Pulse 77 08/13/21 07:10 Resp 16 08/13/21 07:10 BP 98/67 08/13/21 07:10 Pulse Ox Intake & Output 08/12/21 08/13/21 08/13/21 18:59 06:59 18:59 Weight 56.245 kg - Exam BMI 19.4 - Constitutional General appearance: Present: cooperative - EENT Eyes: Present: EOMI ENT: Present: hearing grossly normal - Neck Neck: Present: normal ROM - Respiratory Respiratory: bilateral: CTA - Cardiovascular Heart sounds: normal: S1, S2 - Integumentary Integumentary: Present: normal turgor - Musculoskeletal Musculoskeletal: Present: gait normal - Psychiatric Psychiatric: Present: A&O x's 3, appropriate affect, intact judgment & insight - Additional findings Additional findings: Breast Exam: BRA: 34A inspection: Status post right mastectomy, chest wall well-healed, left breast grade 2 ptosis Palpation: Right chest wall: No evidence of recurrent cancer Right axilla: No adenopathy of concern Left breast: Multiple positional exam fibrocystic changes Left axilla: No adenopathy of concern Assessment and Plan Assessment: Impression: 1. Patient status post right mastectomy no evidence of recurrent right breast cancer 2. Mammographic abnormality left breast Plan: 1. Stereotactic core biopsy left breast The area of concern in the left breast are somewhat amorphous difficult to see calcifications. We are going to attempt to see these were stereotactic core biopsy. If possible we will do stereotactic core biopsy patient understands risks and benefits. Risks include but are not limited to bleeding, infection, reaction to the anesthetic. She understands the clip will be left after the biopsy. If we are unable to technically do a stereotactic core biopsy most likely needle local excision will be recommended. Patient understands risks and benefits and wishes to proceed. CC: Lian Balderas
--- NOTE | 2021-08-13 09:18 | P.PN ---
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 This was reviewed in detail with Dr. Fried and Dr. Fried is going to dictate regarding this. His recommendation is repeat mammogram in 6 months. The patient additionally had expressed some anxiety and prior suicidal ideations in the past. She is seeing a counselor. She states she does not have any suicidal ideations at this time. She wishes to be discharged home. She is encouraged to reconnect with her counselor. She was given the option of seeing someone today and has declined. Plan: Repeat left breast mammogram and physician exam in 6 months Continue to follow with medical oncology Continue to follow up with radiation oncology
--- NOTE | 2021-08-14 11:57 | MM ---
Discontinued stereotactic core biopsy of the left breast HISTORY: Microcalcifications Multiple unsuccessful attempts were made at localizing faint calcifications throughout the left breas t. The procedure was subsequently discontinued. Six-month follow-up mammography is advised. IMPRESSION: Six-month follow-up mammography of the left breast.
== END ==
LOC: RADMAMWWP 07:04
PROVIDERS: ATTEND Surgery
DX: R92.1 Mammographic calcification found on diagnostic imaging of breast (principal)

== ENCOUNTER → 2021-11-09 | Outpatient (CLI) | payer MEDICARE, OTHER ==
[~2021-11-09] MED LIST changes: +LEUPROLIDE ACET 11.25MG SYRGKIT IM NR; -LEUPROLIDE ACET 11.25MG SYRGKIT IM ONE
[2021-11-09 13:32] VITALS: BP 97/65; PULSE 76; RESP 16; TEMP 97.8
== END ==
LOC: PROCWHC3 13:04
PROVIDERS: ATTEND Internal Medicine Hematology & Oncology
DX: C50.111 Malignant neoplasm of central portion of right female breast (principal); Z88.6 Allergy status to analgesic agent; Z91.09 Other allergy status, other than to drugs and biological substances; F17.200 Nicotine dependence, unspecified, uncomplicated
CPT/HCPCS: 96402; J1950